=== PATIENT | female | born 1955 | race Caucasian/White ===

== ENCOUNTER 2024-11-17 13:03 | Outpatient (REF) | payer MEDICARE, SELFPAY ==
[2024-11-17 14:39] LABS: Erythrocyte Sedimentation Rate 6 MM/HR (0-20)
--- OUTSIDE RECORDS SUMMARY | 2024-11-17 16:27 | XMS_ITS ---
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 Role Phone Jose Cruz Brown Unavailable [phone] Allergies Allergen (clinical drug ingredient) Drug/Non Drug Allergy documented on EMR Reaction Allergy Type Onset Date Status EPINEPHrine Unknown Drug Allergy Activ e azithromycin Azithromycin Unknown Drug Allergy A ctive REASON FOR VISIT persistent cough for 5 weeks green at times, Took antibiotics from an urgent xgml-zltz-yfj clav-feels it did not work, pcp then gave a cough syrup-on her second bottle, Xray showed No pneumonia-3 weeks ago-had xray at her pcp, SOB when coughing, Feels sinus pressure-, Chocking on phlegm at times-her episodes last about 15 min, Has sleep apnea Medications Medication SIG (Take, Route, Frequency, Duration) Notes Start Date End Date Status Metoprolol Succinate 25 MG 1 capsule Ora lly Once a day Active Ciprofloxacin 500 MG/5ML (10%) 2.5 mL Orally every 12 hrs for 10 days 07/10/2023 Active Citalopram Hydrobromide 10 MG 1 tablet Orally Once a day Active guaiFENesin-Codeine 100-10 MG/5ML 10 mL as needed Orally every 4 hrs for 7 days 07/10/2023 Active Coditussin AC 200-10 MG/5ML 10 mL as nee ded Orally every 4 hrs for 5 days 07/10/2023 Active Vital Signs Temperature 98.5 degrees Fahrenheit 07/10/20 23 Heart Rate 68 /min 07/10/2023 Height 66 in 07/10/2023 Weight 142 lbs 07/10/2023 BMI 22.92 kg/m2 07/10/2023 Oximetry 96 % 07/10/2023 Encounters Encounter Location Date Provider Diagnosis [facility] [address] [place] [address] 07/10/2023 Jose Cruz Brown Cough, unspecified R05.9 and Bronchitis, not specified as acute or chronic J40 Assessments Encounter Date Diagnosis (ICD Code) Assessment Notes Treatment Notes Treatment Clinical Notes Section Notes 07/10/2023 Cough, unspecified (ICD-10 - R05.9) 07/10/2023 Bronchitis, not specified as acute or chronic (ICD-10 - J40) Plan Of Treatment Medication Medication Name Sig Start Date Stop Date Notes Ciprofloxacin 500 MG/5ML (10%) 2.5 mL Or ally every 12 hrs for 10 days 07/10/2023 guaiFENesin-Codeine 100-10 MG/5ML 10 mL as needed Orally every 4 hrs for 7 days 07/10/2023 Coditussin AC 200-10 MG/5ML 10 mL as nee ded Orally every 4 hrs for 5 days 07/10/2023 Pending Test Test Name Order Date X ray : Chest PA and lateral 07/10/2023 Next Appt Details Follow Up: 1 Week, Reason: Progress Notes * AGGIE GIVENS OB:1955 (68 yo F)Acc No.[id number]:07/10/2023 Patient:?DANIEL GIVENS Provider:?Jose Cruz Brown MD :1955???Age:68 Y???Sex:Female D ate:07/10/2023 Address:[address] [place], [place] [id number] Subjective: * Chief Complaints: * ???Persistent cough for 5 we eks green at timesTook antibiotics from an urgent zjhk-ybqw-tsl clav-feels it did not workPcp then gave a cough syrup-on her second bottleXray showed No pneumonia-3 weeks ago-had xray at her pcpSOB when coughingFeels sinus pressure-Chocking on phlegm at times-her episodes last about 15 Claudia sleep apnea * HPI: ???Adolescent Depression Screening:? Hx as above. Notes persistent cough that has been going on for 3 weeks. Had xray in [place] that was negative - she has close follow up scheduled with her regular doctor. Does not cough up blood. ?Generally having trouble sleeping due to the cough. ?Usually not short of breath. * ROS:?cv - no chest pain, palpitaitons, syncope resp - as above - sputum thick, also has sinus congestion. 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 * Medical History:? * Surgical History:?No Surgica l History documented. * Hospitalization/Major Diagno stic Procedure:?No Hospitalization History. * Family History:?Non-Contribu tory.? * Social History:?No Social History documented Non-Contributory. * Medications:?TakingMetoprolo l Succinate 25 MG Capsule ER 24 Hour Sprinkle 1 capsule Orally Once a day Citalopram Hydrobromide 10 MG Tablet 1 tablet Orally Once a day Medication List reviewed and reconciled with the patientTaking Metoprolol Succinate 25 MG Capsule ER 24 Hour Sprinkle 1 capsule Orally Once a day Taking Citalopram Hydrobromide 10 MG Tablet 1 tablet Orally Once a day Medication List reviewed and reconciled with the patient * Allergies:?Azithromycin: All ergyEPINEPHrine: Allergyno[Allergies Verified] Objective: * Vitals:?Temp:98.5F, HR:68/mi n, Wt:142lbs, BMI:22.92Index, Ht: 66 in, Oxygen sat %:96%, Ht-cm: 167.64 cm, Wt-k.41 kg. * Examination: ???General Examination: ?GENERAL APPEARANCE:?alert, pleasant, well nourished, well developed, in no acute distress.?HEAD:?normocephalic, atraumatic.?NECK/THYROID:?neck supple, full range of motion, no carotid bruit, no cervical lymphadenopathy, no thyroid nodules, no thyromegaly.?LUNGS:?clear to auscultation bilaterally, good air movement, no wheezes, rales, rhonchi.?NEUROLOGIC:?nonfocal, alert and oriented, cranial nerves 2-12 grossly intact, motor strength normal upper and lower extremities, no tremor, sensory exam intact.?PSYCH:?alert, oriented, cognitive function intact, mood/affect full range.?slight sinus tenderness or percussion ?lungs- no rhonchi, wheezes, rales. Assessment: * Assessment: 1.?Cough, unspecified - R05. 9 (Primary)?2.?Bronchitis, not specified as acute or chronic - J40? Plan: * Treatment: * Procedure Codes:? * Follow Up:?1 Week * * Sign off status: Completed Addendum: * ? true * Provider:?Jose Cruz Brown MD Date:?06/17 Generated for Jozef guadalupe/Sabina/eTransmitting on:?11/17/2024 04:27 PM EST History and Physical Notes * HPI (History of Present Illness) Category Sub-Category Detail Notes Category Not es z. Adolescent Depression Screening Hx as above. Notes persistent cough that has been going on for 3 weeks. Had xray in [place] that was negative - she has close follow up scheduled with her regular doctor. Does not cough up blood. Generally having trouble sleeping due to the cough. Usually not short of breath. Examination Category Sub-Category Detail Notes Category Not es General Examination GENERAL APPEARANCE: alert, p leasant, well nourished, well developed, in no acute distress slight sinus tenderness or percussion lungs- no rhonchi, wheezes, rales HEAD: normocephalic, atrau matic NECK/THYROID: neck supple, full ra nge of motion, no carotid bruit, no cervical lymphadenopathy, no thyroid nodules, no thyromegaly LUNGS: clear to auscultatio n bilaterally, good air movement, no wheezes, rales, rhonchi NEUROLOGIC: nonfocal, alert and oriented, cranial nerves 2-12 grossly intact, motor strength normal upper and lower extremities, no tremor, sensory exam intact PSYCH: alert, oriented, cog nitive function intact, mood/affect full range
--- OUTSIDE RECORDS SUMMARY | 2024-11-17 16:27 | XMS_ITS | Data Portability ---
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 She has apt with Dr Cohen in a month for consideration of dilation. Her barium swallow results were not available for my review, but she recalls there was no specific notation of cricopharyngeal hypertrophy or evidence of aspiration. Her swallow therapy made dietary recommendations for minced and moist food which she is very capable of managing. 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 Lab None record ed. Referral None record ed. Procedures None record ed. Surgeries None record ed. Imaging None record ed. Medication Orders None record ed. Patient TargetsNo targets recorded. Patient InstructionsNo instructions recorded. Reason for Referral None Reported. Results Created Date Observation Date Name Description Value Unit Range Abnormal Flag Note LastModifiedBy Organization Detail LastModifiedTime 04/29/20 24 04/13/2024 evalu ation of speec h sound produ ction (PROC ) No observ ation record ed. [email or web address] Not Available 2023 15:14:41 Result Notes None recorded. Problems Name Problem SNOMED Code Status Onset Date Resolution Date Notes Provider Name and Address Organization Details Recorded Time Dysphagia 14478123 Active 020 Dysphag ia, unspeci fied; Note: Date Diagnos ed: 0 11:28 AM (R13.10 ) OBED BARKLEY MD [address] [facility],[place] [address], [place], [address] , [facility] 4 11:15:33 Problem Notes None recorded. Procedures Surgical History Date Name Laterality Status Provider Name and Address Organization Details Recorded Time 04/20/20 24 FOL_DP completed OBED BARKLEY MD [address] [facility],[place] [address], [place], [address], [facility] 04/20/2024 11:41:25 06/11/20 22 Esophagoscopy rigid trnso completed OBED BARKLEY MD [address] [facility],[place] [address], [place], [address], [facility] 04/18/2024 11:14:29 Imaging Results Imaging Date Name Status LastModified by Organiz ation Details LastModified Time 04/13/2024 evaluation of speech sound production (PROC) completed [email or web address] Information not available 04/29/2024 15:14:41 Procedure Notes None recorded. Medical Equipment None Reported. Allergies Allergen ID Allergen Name Allergen Category Reaction Reaction Severity Criticality Documentation Date Start Date Code Code System Note Provider Name and Address Organization Details Recorded Time 588650 epinephri ne medicatio n other Not available Not available 01/28/2024 3992 RxNorm React ion: unkno wn, unspe cifie d;; Not Available [facility] 4 01:22:09 [id number] erythromy tawana ethylsucc inate medicatio n other Not available Not available 01/28/2024 4056 RxNorm React ion: unkno wn, unspe cifie d;; Not Available [facility] 4 01:22:10 Medications Name Sig Start Date Stop Date Status Note LastModified by Organization Details LastModified Time metoprolol succinate ER 50 mg tablet,ext ended release 24 hr TAKE 1 AND 1/2 TABLETS DAILY BY MOUTH active Not Available Not Available No t Available citalopram 10 mg tablet TAKE 1 TABLET BY MOUTH DAILY active Not Available Not Available No t Available amoxicilli n 250 mg-potassi um clavulanat e 62.5 mg/5 mL oral suspension TAKE 10 ML BY MOUTH 3 TIMES PER DAY FOR 7 DAYS. DISCARD REMAINING PORTION active Not Available Not Available No t Available ciprofloxa tawana 250 mg tablet TAKE 1 TABLET BY MOUTH EVERY 12 HOURS FOR 7 DAYS active Not Available Not Available No t Available lorazepam 0.5 mg tablet active Medicatio n ID: [id number] Br and Name: lorazepam Send Method: E-Prescri bed Subs Allowed: subs OK Medica tionGener icName: lorazepam Not Available Not Available Not Available codeine 10 mg-guaifen esin 100 mg/5 mL oral liquid TAKE 5 ML BY MOUTH EVERY 6 HOURS active Not Available Not Available No t Available mupirocin 2 % topical ointment APPLY 1-3X DAILY TO WOUND L LOWER LEG UNTIL HEALED active Not Available Not Available No t Available albuterol sulfate HFA 90 mcg/actuat ion aerosol inhaler INHALE 2 PUFFS EVERY 6 HOURS NEEDED FOR SHORTNESS OF BREATH OR WHEEZING active Not Available Not Available No t Available fluticason e propionate 50 mcg/actuat ion nasal spray,susp ension USE 1-2 SPRAYS IN EACH NOSTRIL DAILY EVERY MORNING active Not Available Not Available No t Available doxycyclin e hyclate 100 mg tablet TAKE 1 TABLET BY MOUTH EVERY 12 HOURS FOR 14 DAYS active Not Available Not Available No t Available Aerochambe r Plus Flow-Vu,La rge Mask FOR USE WITH ALBUTEROL active Not Available Not Available No t Available Vitals None Recorded Social History None recorded. Functional Status None recorded. Mental Status None recorded. Family History Nothing Reported. Medical History No medical history recorded. Gynecological HistoryNo gynecological history recorded. Obstetrics History GPAL:G 0 P 0 0 0 0 Past Encounters Encounter ID Performer Location Encounter Start Date Encounter Closed Date Diagnosis/Indication Diagnosis SNOMED-CT Code Diagnosis ICD10 Code Diagnosis Note [id number] OBED BARKLEY MD [facility] [address] [address] 04/20/2024 10:42:30 04/20/2024 12:25:13 Dysphagia 79601102 R13.10 Health Concerns Section Related Observation LastModified by Organization Detzeb LastModified Time None Recorded Concern Status LastModified by Organization Details LastModified Time None Recorded Advance Directives Directive None Recorded Payers Encounter Date Sequence Insurance Name Policy Number Policy Cedillo Covered Member ID Cedillo Member ID Guarantor Name 04/20/2024 1 STEVE-BRICE: MEDICARE PPO BLUE (MEDICARE REPLACEMENT PPO) [id number] Josi Guerrero [id number] Josi Guerrero Notes Date Note Type Note Provider Name and Address Organization Details Recorded Time 04/20/2024 text/html dysphagia06/11/22 [facility] myotomy suspects she is aspirating, can occur when talking while eatingfeels food goes down throat very slowlycan get nasal regurgitation when clears throat 03/26/[address] [facility] - no aspiration04/13/[address] [facility] last week - weak oral and pharyngeal swallow, recommend minced and moist foodcannot project voice over past year OBED BARKLEY MD [address] [place] [address], [phone], [place] [facility] 04/20/2024 12:19:16 OBGyn Episode No OBEpisode recorded.
--- OUTSIDE RECORDS SUMMARY | 2024-11-17 16:27 | XMS_ITS | Clinical Summary ---
Author Organization [facility] Address [address] [place] [phone] Phone Care Team Providers Care Service Desk Manager Name Role Phone Emmett Aadme MD Primary Care Provider [phone] Allergies Active Allergy Reactions Criticality Noted Date Comments Epinephrine Other 01/18/2014 Heart racing Erythromycin Nausea And Vomiting 01/18/2014 Other Reaction(s): Rash/Dermatitis Medications albuterol HFA (PROAIR HFA ; PROVENTIL HFA ; VENTOLIN HFA) 90 mcg/actuation inhaler INHALE 2 PUFFS BY MOUTH EVERY 6 HOURS NEEDED FOR SHORTNESS OF BREATH OR WHEEZING 3 Active citalopram (CeleXA) 10 mg tablet Take 1 Tablet by mouth daily. 2 Active fluticasone propionate (FLONASE) 50 mcg/actuation nasal spray USE 2 SPRAYS INTO EACH NOSTRIL ONCE DAILY 2 Active LORazepam (ATIVAN) 1 mg tabletIndicatio ns:anxiety Take 0.5 tablets (0.5 mg total) by mouth every 6 (six) hours if needed. 2 Active MULTIVITAMIN ORAL Take 1 capsule by mouth daily. 4 Active mupirocin (BACTROBAN) 2 % ointment APPLY 1-3X DAILY TO WOUND L LOWER LEG UNTIL HEALED 3 Active metoprolol succinate (TOPROL-XL) 50 mg 24 hr tablet Take 1 tablet (50 mg total) by mouth 1 (one) time each day. Do not crush or chew. 4 Active metoprolol tartrate (LOPRESSOR) 25 mg tablet Take 1 tablet (25 mg total) by mouth 1 (one) time each day if needed (palpitations) . 10 tablet 4 Active ammonium lactate (AmLactin) 12 % lotion Apply topically if needed for dry skin. 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 Overview (07/23/2024): ENT following PAC (premature atrial contraction) 11/26/2019 Leukopenia 03/04/2017 Overview (07/23/2024): Per patient, mild since 2000 at least Esophageal stricture 07/13/2015 Overview (07/23/2024): Balloon dilatations with Dr Galvin; now seeing Dr Cohen Atrial fibrillation 12/21/2013 Overview (07/23/2024): [facility]; Status post ablation 08/03 SHELDON (obstructive sleep apnea) 12/21/2013 Overview (07/23/2024): Compliant with BiPAP Encounters Date Type Department Care Team Description 08/27/2024 9:15 AM EST Office Visit Orthopedic Surgery - [place] [address] [phone] Farooq Carballo, DPM Xerosis of skin (Primary Dx); Dermatophytosis of nail; Pain in toe of right foot; Pain in toe of left foot; Difficulty walking; Bilateral femoral artery stenosis (CMS/HCC); Dermatofibroma of left lower leg; Metatarsalgia of both feet; Ingrowing nail 08/25/2024 10:40 AM EST Office Visit [facility] - [facility] [address] [facility] 154 [place] [address] Rubi Omer, STEPHANIE Atrial fibrillation, unspecified type (CMS/HCC) (Primary Dx) from Last 3 Months Immunizations Name Administration Dates Next Due Influenza trivalent, 0.5mL ( Fluad) 65yo and older 06/06/2020 Influenza trivalent, 0.5mL, preservative free (Fluarix; FluLaval; Fluzone) ages 6mo and older (Afluria) 3 years and older 05/23/2016,05/09/2015,06/07/2014 Pneumococcal conjugate 13 va lent (Prevnar 13, PCV13) 2mo and older 03/12/2019 Pneumococcal polysaccharide 23 valent (Pneumovax 23) 2yo and older 03/05/2018 Tdap Tetanus diptheria acell ular pertussis (Boostrix; Adacel) 7yo and older 06/10/2020 Zoster Live 02/10/2015 Zoster recombinant (Shingrix ) 19yo and older 05/16/2020,03/02/2020 Surgical History Surgery Date Site/Laterality Comments OTHER SURGICAL HISTORY 2005 PROCEDURE: [place] TOTAL ABDOMINAL HYSTERECT W/WO RMVL TUBE OVARY OTHER SURGICAL HISTORY 2006 PROCEDURE: [place] PROCTOPEXY ABDOMINAL APPROACH OTHER SURGICAL HISTORY 1996 PROCEDURE: HISTORICAL CA BASAL CELL; COMMENT: upper lip UPPER GASTROINTESTINAL ENDOSCOPY 2014 PROCEDURE: UPPER GI ENDOSCOPY/EXAM; COMMENT: esophageal dilatations COLONOSCOPY 2003 PROCEDURE: HISTORICAL COLONOSCOPY; COMMENT: normal; no report COLONOSCOPY 01/13/2014 PROCEDURE: HISTORICAL COLONOSCOPY; COMMENT: mild melanosis; repeat 5 yrs OTHER SURGICAL HISTORY 07/29/2018 PROCEDURE: ---- OTHER ----; COMMENT: ablation for A Fib CATARACT EXTRACTION PROCEDURE: HISTORICAL CATARACT REMOVAL ABLATION A-FIB Medical History Medical History Date Comments Obesity 01/18/2014 DX:Obesity SHELDON (obstructive sleep apnea) 12/21/2013 DX :SHELDON (obstructive sleep apnea); COMMENT: Compliant with BiPAP Atrial fibrillation (CMS/HCC) 12/21/2013 DX :Atrial fibrillation (HCC); COMMENT: [facility] Abnormal echocardiogram 08/11/2014 DX:Abnor mal echocardiogram; COMMENT: 07/30 Basal to mid inferoseptum and basal to mid inferior wall appears slightly hypokinetic, LVEF 55%; similar 05/03 Esophageal stricture 07/13/2015 DX:Esophage al stricture; COMMENT: Balloon dilatations with Dr Galvin Leukopenia 03/04/2017 DX:Leukopenia; C OMMENT: Per patient, mild since 2000 at least History of basal cell carcinoma 03/31/2018 DX:History of basal cell carcinoma; COMMENT: BCC 1998 upper lip Family History Medical History Relation Name Comments Colon cancer Father in his 60's Hypertension Father Stroke Father Diabetes Maternal Grandfather Other: oral CA Mother Coronary artery disease Paternal Grandfather Breast cancer Paternal Grandmother possib le, uncertain Relation Name Status Comments Father Maternal Grandfather Mother Paternal Grandfather Paternal Grandmother Social History Tobacco Use Types Packs/Day Years Used Date Smoking Tobacco: Never Smokeless Tobacco: Never Tobacco Cessation:Counseling Given: Not Answered Alcohol Use Standard Drinks/Week Comments Yes 0 (1 standard drink = 0.6 oz pur e alcohol) Interpersonal Safety Answer Date Record ed Physical Abuse 07/31/2024 Verbal Abuse 07/31/2024 Comments No Sex and Gender Information Value Date Recorded Sex Assigned at Female 07/29/2024 4:07 PM EST Legal Sex Female 5:58 PM EST Gender Identity Female 07/29/2024 4:07 PM EST Sexual Orientation Straight 07/29/2024 4: 07 PM EST Obstetrics History Para Term AB IAB SAB Ectopic Multiple Livin g Live Births 3 Last Filed Vital Signs Vital Sign Reading Time Taken Comments Blood Pressure 140/70 08/25/2024 10:24 AM EST Pulse 59 08/25/2024 10:24 AM EST Temperature 36.7 ??C (98.1 ??F) 07/31/2024 8:09 AM ES T Respiratory Rate 18 07/31/2024 8:29 AM EST Oxygen Saturation 99% 08/25/2024 10:24 AM EST Inhaled Oxygen Concentration - - Weight 63.5 kg (140 lb) 08/27/2024 9:37 AM EST Height 167.6 cm (5' 6 ) 08/25/2024 10:24 AM EST Body Mass Index 22.6 08/25/2024 10:24 AM EST Plan of Treatment Upcoming Encounters Date Type Department Care Team (Late st Contact Info) Description 01/29/2025 2:45 PM EDT Office Visit Pulmonolgy - [address] [place] [phone] James Khan MD 175 [facility] [address] [place] [address] 02/17/2025 9:00 AM EDT Office Visit Orthopedic Surgery - [place] 250 175 [facility] [address] [place] [phone] Farooq Carballo DPM 175 [facility] 250 [place] [address] 08/02/2025 10:45 AM EST Appointment [facility] [address] [place] [phone] Health Maintenance Due Date Last Done Comments Depression Screening 08/25/2022 Medicare Annual Wellness Visit 08/25/2022 Social Influencers of Health Screening 08/25/2022 Cholesterol Screening (Lipid Panel) 03/27/2023 03/27/2018 Falls Risk Assessment 07/31/2025 07/31/2024 Breast Cancer Screening 07/30/2026 07/30/20, 07/29/2023, 07/27/2022, Additional history exists Colorectal Cancer Screening: Colonoscopy 07/31/2029 07/31/2024, 05/12/2019 DTaP,Tdap,and Td Vaccines (2 - Td or Tdap) 06/10/2030 06/10/2020 Osteoporosis Screening (Bone Density Screening) 07/20/2035 07/20/2020 Hepatitis C Screening Completed 01/18/2014 Zoster Vaccines Completed 05/16/2020, 04/18, 03/02/2020, Additional history exists Pneumococcal Vaccine: 50+ Years Completed 04/18/2023, 03/12/2019, 03/05/2018 RSV Immunization Patients 60+ Years Old Completed 09/02/2023 RSV Immunization Patients Under 20 months Aged Out 09/02/2023 No longer eligible based on patient's age to complete this topic Influenza Vaccine Completed 07/06/2024, , 08/05/2023, Additional history exists COVID-19 Vaccine Completed 07/14/2024, , 07/05/2021, Additional history exists HIB Vaccines Aged Out No longer eligi ble based on patient's age to complete this topic HPV Vaccines Aged Out No longer eligi ble based on patient's age to complete this topic Hepatitis A Vaccines Aged Out No long er eligible based on patient's age to complete this topic Hepatitis B Vaccines Aged Out No long er eligible based on patient's age to complete this topic IPV Vaccines Aged Out No longer eligi ble based on patient's age to complete this topic MMR Vaccines Aged Out No longer eligi ble based on patient's age to complete this topic Meningococcal ACWY Vaccine Aged Out N o longer eligible based on patient's age to complete this topic Meningococcal B Vacine Aged Out No lo nger eligible based on patient's age to complete this topic Varicella Vaccines Aged Out No longer eligible based on patient's age to complete this topic Procedures Procedure Name Priority Date/Time Associated Diagnosis Comments ECG 12-LEAD Routine 08/25/2024 11:11 AM EST Atrial fibrillation, unspecified type (CMS/HCC) COLONOSCOPY Routine 07/31/2024 8:08 AM EST Encounter for screening for malignant neoplasm of colon MG MAMMO DIGITAL SCREENING W CHASE BILAT Routine 07/30/2024 11:37 AM EST Encounter for screening mammogram for breast cancer LESLY DEXA AXIAL SKELETON Routine 07/20/2020 2:26 PM EST Asymptomatic menopausal state LIPID PANEL Routine 03/27/2018 HM HEPATITIS C SCREENING Routine 01/18/2014 from Last 3 Months or Most Recently Relevant to Health Maintenance Results * ECG 12 lead (08/25/2024 11:11 AM EST) Ventricular Rate ECG 59 BPM GEMUSE Atrial Rate 59 BPM GEMUSE P-R Interval 162 ms GEMUSE QRS Duration 84 ms GEMUSE Q-T Interval 420 ms GEMUSE QTc 415 ms GEMUSE P Wave [place] 42 degrees GEMUSE R [place] 40 degrees GEMUSE T [place] 39 degrees GEMUSE ECG Interpretation Sinus bradycardia Otherwise normal ECG When compared with ECG of 30-JUL-2018 07:55, No significant change was found Confirmed by Reema VALENCIA JOHN ([id number]) on 08/25/2024 11:42:18 AM GEMUSE 08/25/2024 10:3 6 AM EST 08/25/2024 11:42 AM EST us Rubi Omer BIOMEDICAL SPECIALIST ECG ORDERABLES Edited Resul t - Final GEMUSE * COLONOSCOPY Anesthesia - MAC; [facility] ENDOSCOPY (07/31/2024 8:08 AM EST) Anatomical Region Laterality Modality Endoscopy 07/31/2024 7:53 AM EST Impressions 07/31/2024 8:10 AM EST - Internal hemorrhoids. ? - The entire examined colon is normal. ? - No specimens collected. Recommendation: ?- Repeat colonoscopy in 5 years for screening purposes. Narrative 07/31/2024 8:10 AM EST [facility] GI Patient Name: Josi Umaña Procedure Date: 07/31/2024 7:53 AM Date of : 1955 Age: 69 Gender: Female Note Status: Finalized Attending MD: Trupti Cohen MD, Procedure Date No Time: 07/31/2024 Procedure: ? Colonoscopy Indications: ? Screening in patient at increased risk: Family history ? of 1st-degree relative with colorectal cancer Providers: ? Trupti Cohen MD Referring MD: ?Emmett Adame MD Medicines: ? Propofol per Anesthesia Complications: ? No immediate complications. Estimated Blood Loss: ? Estimated blood loss: none. Procedure: ? Pre-Anesthesia Assessment: ? - ASA Grade Assessment: III - A patient with severe ? systemic disease. ? After I obtained informed consent, the scope was ? passed under direct vision. Throughout the procedure, ? the patient's blood pressure, pulse, and oxygen ? saturations were monitored continuously.The ? Colonoscope was introduced through the anus and ? advanced to the cecum, identified by appendiceal ? orifice and ileocecal valve. The colonoscopy was ? performed without difficulty. The patient tolerated ? the procedure well. The quality of the bowel ? preparation was excellent. Findings: ?The perianal and digital rectal examinations were ? normal. ? Internal hemorrhoids were found during retroflexion. ? The hemorrhoids were Grade I (internal hemorrhoids ? that do not prolapse). ? The entire examined colon appeared normal. Procedure Code(s): ? --- Professional --- ? G0105, Colorectal cancer screening; colonoscopy on ? individual at high risk Diagnosis Code(s): ? --- Professional --- ? Z80.0, Family history of malignant neoplasm of ? digestive organs CPT copyright 2020 [employer]. All rights reserved. The codes documented in this report are preliminary and upon coil winding supervisor review may be revised to meet current compliance requirements. Trupti Cohen MD 07/31/2024 8:09:44 AM This report has been signed electronically.Trupti Cohen MD Number of Addenda: 0 Note Initiated On: 07/31/2024 7:53 AM Scope In: Scope Out: ? Endoscopy Department at [facility] - [address] [place] [address], ? [place] [phone] Procedure Note Trupti Cohen MD - 07/31/2024 [facility] GI Patient Name: Josi Umaña Procedure Date: 07/31/2024 7:53 AM Date of : 1955 Age: 69 Gender: Female Note Status: Finalized Attending MD: Trupti Cohen MD, Procedure Date No Time: 07/31/2024 Procedure: Colonoscopy Indications: Screening in patient at increased risk: Familyhistory of 1st-degree relative with colorectal cancer Providers: Trupti Cohen MD Referring MD: Emmett Adame MD Medicines: Propofol per Anesthesia Complications: No immediate complications. Estimated Blood Loss: Estimated blood loss: none. Procedure: Pre-Anesthesia Assessment: - ASA Grade Assessment: III - A patient with severe systemic disease. After I obtained informed consent, the scope was passed under direct vision. Throughout theprocedure, the patient's blood pressure, pulse, and oxygen saturations were monitored continuously.The Colonoscope was introduced through the anus and advanced to the cecum, identified by appendiceal orifice and ileocecal valve. The colonoscopy was performed without difficulty. The patient tolerated the procedure well. The quality of the bowel preparation was excellent. Findings: The perianal and digital rectal examinations were normal. Internal hemorrhoids were found duringretroflexion. The hemorrhoids were Grade I (internal hemorrhoids that do not prolapse). The entire examined colon appeared normal. Procedure Code(s): --- Professional --- G0105, Colorectal cancer screening; colonoscopy on individual at high risk Diagnosis Code(s): --- Professional --- Z80.0, Family history of malignant neoplasm of digestive organs CPT copyright 2020 [employer]. All rights reserved. The codes documented in this report are preliminary and upon coil winding supervisor reviewmay be revised to meet current compliance requirements. Trupti Cohen MD 07/31/2024 8:09:44 AM This report has been signed electronically.Trupti Cohen MD Number of Addenda: 0 Note Initiated On: 07/31/2024 7:53 AM Scope In: Scope Out: Endoscopy Department at [facility] - [address] [place] [phone] IMPRESSION: - Internal hemorrhoids. - The entire examined colon is normal. - No specimens collected. Recommendation: - Repeat colonoscopy in 5 years for screeningpurposes. us Trupti Cohen MD GI~PROCEDURE ORDERABLES Final Result * MG Mammo Digital Screening w Chase bilat (07/30/2024 11:37 AM EST) Anatomical Region Laterality Modality Breast Bilateral Mammography 07/30/2024 5:16 PM EST Impressions 07/30/2024 5:21 PM EST No mammographic evidence of malignancy. ?? No suspicious interval change. A negative mammogram in the presence of a clinically suspicious palpable abnormality does not preclude the possibility of malignancy or alter the indications for biopsy. ASSESSMENT: ?? BI-RADS 1: NEGATIVE RECOMMENDATION(S): 1: Routine screening mammogram BILATERAL in 1 year. -------- FINAL REPORT -------- Dictated By: Jorge Schuler Dictated Date: 07/30/2024 17:16 ET Assigned Physician: Jorge Schuler Reviewed and Electronically Signed By: Jorge Schuler Signed Date: 07/30/2024 17:21 ET Workstation ID: [id number] Transcribed By: Self Edit Transcribed Date: 07/30/2024 17:16 ET Narrative 07/30/2024 5:21 PM EST EXAM: ??SCREENING MAMMOGRAPHY, BILATERAL HISTORY: ??SCREENING. ??Paternal grandmother with history of breast cancer. COMPARISON: ??07/29/2023, 07/27/2022, 07/25/2021, 07/20/2020 TECHNIQUE: Synthesized CC and MLO projections of each breast. ??Tomosynthesis of each breast in the CC and MLO projections. ADDITIONAL IMAGING: None Computer-aided detection was employed with the iCAD ??profound AI 3-D. TISSUE DENSITY: The breasts are almost entirely fatty. (BI-RADS ??Category A) FINDINGS: RIGHT BREAST: No suspicious mass. No suspicious calcification. No distortion. ?? No additional suspicious right breast findings LEFT BREAST: No suspicious mass. No suspicious calcification. No distortion. ?? No additional suspicious left breast findings Procedure Note Jorge Schuler MD - 07/30/2024 EXAM: SCREENING MAMMOGRAPHY, BILATERAL HISTORY: SCREENING. Paternal grandmother with history of breastcancer. COMPARISON: 07/29/2023, 07/27/2022, 07/25/2021, 07/20/2020 TECHNIQUE: Synthesized CC and MLO projections of each breast.Tomosynthesis of each breast in the CC and MLO projections. ADDITIONAL IMAGING: None Computer-aided detection was employed with the iCAD profound AI 3-D. TISSUE DENSITY: The breasts are almost entirely fatty. (BI-RADS CategoryA) FINDINGS: RIGHT BREAST: No suspicious mass. No suspicious calcification. No distortion. Noadditional suspicious right breast findings LEFT BREAST: No suspicious mass. No suspicious calcification. No distortion. Noadditional suspicious left breast findings IMPRESSION: No mammographic evidence of malignancy. No suspicious interval change. A negative mammogram in the presence of a clinically suspicious palpableabnormality does not preclude the possibility of malignancy or alter theindications for biopsy. ASSESSMENT: BI-RADS 1: NEGATIVE RECOMMENDATION(S): 1: Routine screening mammogram BILATERAL in 1 year. -------- FINAL REPORT -------- Dictated By: Jorge Schuler Dictated Date: 07/30/2024 17:16 ET Assigned Physician: Jorge Schuler Reviewed and Electronically Signed By: Jorge Schuler Signed Date: 07/30/2024 17:21 ET Workstation ID: [id number] Transcribed By: Self Edit Transcribed Date: 07/30/2024 17:16 ET us Emmett Adame MD IMG BI PROCEDURES Final Result * LESLY DEXA AXIAL SKELETON (07/20/2020 2:26 PM EST) Anatomical Region Laterality Modality Mammography 07/20/2020 9:39 AM EST Narrative 07/20/2020 2:26 PM EST [facility] Diagnostic Imaging Department [address] [place], [place] [id number] Patient: ??JOSI UMAÑA ?/Age/Sex: 1955 - F Unit#: ??[id number] ? Location/Status: ??SPDIMAM/REG CLI ? Mnemonic/Ordering Site: ??[facility]DEXAAX/SPMAM Ordering Physician: ??EMMETT ADAME MD Lesly Dexa Axial Skeleton - 07/20/201039 HISTORY: ??The patient is a 65-year-old postmenopausal female with clinical concern for metabolic bone disease. FINDINGS: ??Dual energy x-ray absorptiometry of the lumbar spine and femurs is performed. The mean bone mineral density at L1-L4 is 1.256 gm/cm2 which is 106% of that of young normals and 125% of that of age matched controls. This yields a T-score of 0.6 and a Z-score of 2.1 and there is therefore no evidence of osteoporosis or osteopenia here. The mean bone mineral density of the femurs bilaterally is 1.128 gm/cm2 which is 112% of that of young normals and 131% of that of age matched controls. ??This yields a T-score of 1.0 and a Z-score of 2.1 and there is therefore no evidence of osteoporosis or osteopenia here. IMPRESSION: 1. There is no evidence of osteoporosis or osteopenia. 2. FRAX analysis yields a 10-year probability of major osteoporotic fracture of 6.3% and a 10-year probability of hip fracture of 0.2%. Code 89398 Dictating Physician: ??SILVERIO CRONIN MD Electronically Signed by: ??SILVERIO CRONIN MD Dic Date/Time: ??07/20/20 1425 Sign date/Time: ??07/20/20 1426 Procedure Note Silverio Cronin MD - 09/04/2022 [facility] Diagnostic Imaging Department [address] [place] [id number] Patient: JOSI UMAÑA D.O.B./Age/Sex: 1955 - 65- F Unit#: [id number] Location/Status: SPDIMAM/REG CLI [facility] Ordering Physician: EMMETT ADAME MD [facility] Dexa Axial Skeleton - 07/20/20 - 1040 HISTORY: The patient is a 65-year-old postmenopausal female withclinical concern for metabolic bone disease. FINDINGS: Dual energy x-ray absorptiometry of the lumbar spine and femursis performed. The mean bone mineral density at L1-L4 is 1.256 gm/cm2 which is106% of that of young normals and 125% of that of age matched controls. Thisyields a T-score of 0.6 and a Z-score of 2.1 and there is therefore no evidenceof osteoporosis or osteopenia here. The mean bone mineral density of the femurs bilaterally is 1.128 gm/zw2dqedi is 112% of that of young normals and 131% of that of age matched controls.This yields a T-score of 1.0 and a Z-score of 2.1 and there is therefore noevidence of osteoporosis or osteopenia here. IMPRESSION: 1. There is no evidence of osteoporosis or osteopenia. 2. FRAX analysis yields a 10-year probability of major osteoporoticfracture of 6.3% and a 10-year probability of hip fracture of 0.2%. Code 47384 Dictating Physician: SILVERIO CRONIN MD Electronically Signed by: SILVERIO CRONIN MD Dic Date/Time: 07/20/20 142 Sign date/Time: 07/20/20 142 us Emmett Adame MD IM BI PROCEDURES Final Result * (ABNORMAL) Lipid panel (03/27/2018) LDL/HDL Ratio 4 0 - 4 Triglycerides 138 0 - 150 mg/dL Cholesterol 183 0 - 200 mg/dL HDL 43 >=40 mg/dL LDL Cholesterol 113(A) 0 - 100 mg/dL Blood Venous blood specimen / Unknown Historical Provider LAB BLOOD ORDERABLES Nettie l Result * Hepatitis C Screening (01/18/2014) Hepatitis C Screening Abstracted Historical Provider HEALTH MAINTENANCE Final Result from Last 3 Months or Most Recently Relevant to Health Maintenance Insurance BLUE CROSS - [place] MEDICARE ADVANTAGE Advance Directives Documents on File Type Date Recorded Patient Berry Grower Expl anation Health Care Decision (hx) 06/23/2020 AD MUNROE DIRECTIVE Health Care Decision (hx) 06/23/2020 AD MUNROE DIRECTIVE Health Care Decision (hx) 06/23/2020 AD MUNROE DIRECTIVE Health Care Decision (hx) 06/23/2020 AD MUNROE DIRECTIVE Health Care Decision (hx) 07/29/2018 AD MUNROE DIRECTIVE Health Care Decision (hx) 07/29/2018 AD MUNROE DIRECTIVE Health Care Decision (hx) 07/29/2018 AD MUNROE DIRECTIVE Health Care Decision (hx) 07/29/2018 AD MUNROE DIRECTIVE Health Care Decision (hx) 07/29/2018 AD MUNROE DIRECTIVE Care Teams Service Desk Manager Relationship Specialty Start Date End Date Emmett Adame MD [id number] [place] [address] PCP - General 11/26/13
--- OUTSIDE RECORDS SUMMARY | 2024-11-17 16:27 | XMS_ITS | Patient Health Record ---
Author Organization [facility] Address [address] [place], [place] [address] [address] Allergies Allergen (clinical drug ingredient) Drug/Non Drug Allergy documented on EMR Reaction Allergy Type Onset Date Status EPINEPHrine Unknown Drug Allergy Activ e azithromycin Azithromycin Unknown Drug Allergy A ctive Reason For Referral No Information Medications Medication SIG (Take, Route, Frequency, Duration) [...] 4 hrs for 5 days 07/10/2023 Active Plan Of Treatment Pending Test Test Name Order Date X ray : Chest PA and lateral 07/10/2023 Insurance Providers Payer Name Payer Address Payer Phone Subscriber Number Group Number Insured Name Patient Relationship to Insured Coverage Start Date Coverage End Date [facility] [id number] [place] [phone] [id number] AGGIE GIVENS Self - patient is the insured Medical (General) History Medical History History ICD Code Anxiety
[2024-11-21 22:03] LABS: Acetylcholine Receptor Binding <0.30 nmol/L
[2024-11-22 18:03] LABS: Acetylcholine Recept. Blocking <15 (<15)
[2024-11-23 12:09] LABS: ANA Pattern 2 Nuclear, Speckled; Anti Nuclear Antibody Screen POSITIVE (NEGATIVE)
== END 2024-11-17 13:04 | disposition home or self-care (01) ==
LOC: HO.LAB 13:03
PROVIDERS: PCP Internal Medicine; Visit Provider Psychiatry & Neurology Neurology
DX: R49.0 Dysphonia (principal); R13.10 Dysphagia, unspecified; G62.9 Polyneuropathy, unspecified
CPT/HCPCS: 36415; 82550; 85652; 86038; 86039; 86041; 86042

== ENCOUNTER 2025-01-11 13:00 | Outpatient (REF) | payer MEDICARE, SELFPAY ==
--- OUTSIDE RECORDS SUMMARY | 2025-01-11 15:34 | XMS_ITS | Clinical Summary ---
Author Organization [facility] Address [address] [place] [address] Phone Care Team Providers Care Roll Changer Name Role Phone Emmett Adame MD Primary Care Provider [phone] Allergies Active Allergy Reactions Criticality Noted Date [...] LOWER LEG UNTIL HEALED 3 Active metoprolol tartrate (LOPRESSOR) 25 mg tablet Take 1 tablet (25 mg total) by mouth 1 (one) time each day if needed (palpitations) . 10 tablet 4 Active ammonium lactate (AmLactin) 12 % lotion Apply topically if needed for dry skin. 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 Overview (07/23/2024): ENT following PAC (premature atrial contraction) 11/26/2019 Leukopenia 03/04/2017 Overview (07/23/2024): Per patient, mild since 2000 at least Esophageal stricture 07/13/2015 Overview (07/23/2024): Balloon dilatations with Dr Galvin; now seeing Dr Cohen Atrial fibrillation ([facility] V24, [facility] V28) 0 12/21/2013 Overview (07/23/2024): [facility] Cardiology; Status post ablation 08/03 SHELDON (obstructive sleep apnea) 12/21/2013 Overview (07/23/2024): Compliant with BiPAP Immunizations Name Administration Dates Next Due Influenza [...] Site/Laterality Comments OTHER SURGICAL HISTORY 2005 PROCEDURE: [place] TOTAL ABDOMINAL HYSTERECT W/WO RMVL TUBE OVARY OTHER SURGICAL HISTORY 2006 PROCEDURE: [place] PROCTOPEXY ABDOMINAL APPROACH OTHER SURGICAL HISTORY 1996 [...] apnea); COMMENT: Compliant with BiPAP Atrial fibrillation (CMS/HCC V24, CMS/HCC V28) 12/21/2013 DX:Atrial fibrillation (HCC) ; COMMENT: [facility] Cardiology Abnormal echocardiogram 08/11/2014 DX:Abnor mal echocardiogram; [...] 01/29/2025 2:45 PM EDT Office Visit Pulmonolgy [facility] [address] [facility] [address] [place] [phone] James Khan MD 175 [facility] [address] [place] [address] 02/17/2025 9:00 AM EDT Office Visit Orthopedic Surgery - [place] [address] [facility] [address] [place] [phone] Farooq Carballo DPM [address] [address] 08/02/2025 10:45 AM EST Appointment [facility] [address] [place] [phone] Health Maintenance Due Date Last Done Comments Depression Screening 08/25/2022 Medicare Annual Wellness Visit 08/25/2022 Social Influencers of Health Screening 08/25/2022 Cholesterol Screening (Lipid Panel) 03/27/2023 03/27/2018 COVID-19 Vaccine (6 - Pfizer risk season) 2025 07/14/2024, 02/26/2022, 07/05/2021, Additional history exists Falls Risk Assessment 07/31/2025 07/31/2024 Breast Cancer Screening 07/30/2026 07/30/20 24, 07/29/2023, 07/27/2022, Additional history exists Colorectal Cancer Screening: Colonoscopy 07/31/2029 07/31/2024, 05/12/2019 DTaP,Tdap,and Td Vaccines (2 - Td or Tdap) 06/10/2030 06/10/2020 Osteoporosis Screening (Bone Density Screening) 07/20/2035 07/20/2020 Hepatitis C Screening Completed 01/18/2014 Zoster Vaccines Completed 05/16/2020, 04/18, 03/02/2020, Additional history exists Pneumococcal Vaccine: 50+ Years Completed 04/18/2023, 03/12/2019, 03/05/2018 RSV Immunization Adult Patients Completed 09/02/2023 RSV Immunization Patients Under 20 months Aged Out 09/02/2023 No longer eligible based on patient's age to complete this topic Influenza Vaccine Completed 07/06/2024, , 08/05/2023, Additional history exists HIB Vaccines Aged Out [...] age to complete this topic Meningococcal B Vaccine Aged Out No l onger eligible based on patient's age to complete this topic Varicella Vaccines Aged Out No longer eligible based on patient's age to complete this topic Procedures Procedure Name Priority Date/Time Associated Diagnosis Comments COLONOSCOPY Routine 07/31/2024 8:08 AM EST Encounter [...] Recently Relevant to Health Maintenance Results * COLONOSCOPY Anesthesia - MAC; [facility] ENDOSCOPY (07/31/2024 8:08 AM EST) Anatomical Region Laterality Modality Endoscopy 07/31/2024 7:53 AM EST Impressions 07/31/2024 8:10 AM EST - Internal hemorrhoids. ? - The entire examined colon is normal. ? - No specimens collected. Recommendation: ?- Repeat colonoscopy in 5 years for screening purposes. Narrative 07/31/2024 8:10 AM EST [facility] GI Patient Name: Josi Umaña [...] of ? digestive organs CPT copyright 2020 [employer]. All rights reserved. The codes documented in this report are preliminary and upon sewing trimmer review may be revised to meet current compliance requirements. Trupti Cohen MD 07/31/2024 8:09:44 AM This report has been signed electronically.Trupti Cohen MD Number of Addenda: 0 Note Initiated On: 07/31/2024 7:53 AM Scope In: Scope Out: ? Endoscopy Department at [facility] - [address] [place] [address], ? [place] [address] Procedure Note Trupti Cohen MD - 07/31/2024 [facility] Patient Name: Josi Umaña [...] neoplasm of digestive organs CPT copyright 2020 [employer]. All rights reserved. The codes documented in this report are preliminary and upon sewing trimmer reviewmay be revised to meet current compliance requirements. Trupti Cohen MD 07/31/2024 8:09:44 AM This report has been signed electronically.Trupti Cohen MD Number of Addenda: 0 Note Initiated On: 07/31/2024 7:53 AM Scope In: Scope Out: Endoscopy Department at [facility] - [address] [place] [phone] IMPRESSION: - Internal hemorrhoids. - The entire [...] Signed Date: 07/30/2024 17:21 ET Workstation ID: [id number] Transcribed By: Self Edit Transcribed Date: 07/30/2024 [...] Signed Date: 07/30/2024 17:21 ET Workstation ID: [id number] Transcribed By: Self Edit Transcribed Date: 07/30/2024 17:16 ET us Emmett Adame MD IMG BI PROCEDURES Final Result * LESLY DEXA AXIAL SKELETON (07/20/2020 2:26 PM EST) Anatomical Region Laterality Modality Mammography 07/20/2020 9:39 AM EST Narrative 07/20/2020 2:[address] [facility] Diagnostic Imaging Department [address] [place] [id number] Patient: ??JOSI UMAÑA ?/Age/Sex: 1955 - - F Unit#: ??[id number] ? Location/Status: ??SPDIMAM/REG CLI ? Mnemonic/Ordering Site: ??MAMDEXAAX/SPMAM Ordering Physician: ??EMMETT ADAME MD Lesly Dexa Axial Skeleton - 07/20/20 - 1040 HISTORY: ??The patient is a 65-year-old postmenopausal [...] probability of hip fracture of 0.2%. Code 79580 Dictating Physician: ??SILVERIO CRONIN MD Electronically Signed by: ??SILVERIO CRONIN MD Dic Date/Time: ??07/20/20 1425 Sign date/Time: ??07/20/20 1426 Procedure Note Silverio Cronin MD - 09/04/2022 [facility] Diagnostic Imaging Department [address] [place], [place] [id number] Patient: JOSI UMAÑA /Age/Sex: 1955 65- F Unit#: [id number] Location/Status: SPDIMAM/REG CLI [facility] Ordering Physician: EMMETT ADAME MD [facility] Dexa Axial Skeleton - 07/20/20 - 1040 [...] density of the femurs bilaterally is 1.128 gm/yl4garwl is 112% of that of young normals [...] probability of hip fracture of 0.2%. 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
--- OUTSIDE RECORDS SUMMARY | 2025-01-11 15:34 | XMS_ITS | Patient Health Record ---
Author Organization [employer] Address [address] [place], [place] [address] [address] Allergies Allergen (clinical drug ingredient) Drug/Non Drug [...] Insured Coverage Start Date Coverage End Date [facility] [address] [place] [address] [id number] AGGIE GIVENS Self - patient is the insured Medical (General) History Medical History History ICD Code Anxiety
[2025-01-15 21:24] LABS: Aldolase 7.7 U/L (<=8.1)
[2025-01-19 18:13] LABS: Acetylcholine Recep Modulating 11
== END 2025-01-11 13:01 | disposition home or self-care (01) ==
LOC: HO.LAB 13:00
PROVIDERS: Visit Provider Psychiatry & Neurology Neurology
DX: R49.0 Dysphonia (principal)
CPT/HCPCS: 36415; 82085; 82550; 86043

== ENCOUNTER 2025-05-04 11:11 | Outpatient (AMB) | payer MEDICARE, SELFPAY ==
--- NOTE | 2025-05-04 11:26 | A.OFFVIS_ITS ---
Intake Visit Reasons: 3 Months F/U Allergies epinephrine Allergy (Unknown, Verified 04/26/25 14:38) Unknown erythromycin base Allergy (Unknown, Verified 04/26/25 14:38) Unknown HPI Comments Details: 70 yo RH woman who developed difficulty swallowing around 2014 when she was diagnosed with esophageal stricture. She had multiple dilatation procedures, over the years, her swallowing functing fluctuated. In 2021, she had cricopharangeal myotomy procedure, after which, she said, she was not normal. It affected her abitlity to speak and swallowing even more. To this day, she has not been able to speak loudly or clearly, and able to pronounce certain words or project her voice. She had a swallowing test that revealed weakness of upper pharangeal muscles. She has not noted any improvement after her initial symptoms in 2021. Her desiree body was weak and she has lost a lot of weight. No bladder or bowel issues. Acetylcholine receptor antibody tires were negative, and CPK/Aldolase were not significantly elevated. She is presenting with difficulty swallowing and speech disturbance. She notes that her speech is notably altered by a sensation she describes as gyu to something migrating up her nose, thereby affecting her voice quality. This sensation is sometimes associated with eating, as described during an episode with zucchini and eggplant. Prior evaluations included nasal endoscopy, which revealed no abnormal findings according to her knowledge. She denies having had any brain scans such as an MRI for these issues. This ongoing symptomatology has not shown improvement despite prescribed medications. Additionally, she mentions recent weight gain over the summer with no dietary explanations, possibly contributing indirectly to her condition. The patient also indicates a historical diagnosis of asthma without further detail on management or current symptomatic control. [facility] Medical History (Updated 05/04/25 @ 11:32 by Mariam Patel MD) Peripheral neuropathy Dysphagia Review of Systems Const Details: - Neurological: Reports difficulty swallowing, speech disturbance - Respiratory: Reports asthma - Gastrointestinal: Reports nasopharyngeal regurgitation - General: Reports weight gain Physical Exam Neuro Other: Mental Status: Alert and oriented to person, place, and time. Normal attention. Normal spontaneous speech, fluency, and comprehension. No obvious issues with mood and memory. Affect is appropriate. Cranial Nerves: CN II: Visual villa full to confrontation, visual acuity intact. CN III, IV, : Pupils equal, round, reactive to light and accommodation. Extraocular movements are normal. CN V: Facial sensation is normal. CN VII: Facial movements symmetrical. CN VIII: Hearing intact to bedside conversation is normal. CN IX, X: Palate elevates symmetrically. CN XI: Shoulder shrug and head turn symmetrical. CN XII: Tongue midline without atrophy or fasciculations. Extrapyramidal: Full facial expressions and blinking. No rigidity. Movements are appropriate with no tremor or abnormality. Speech: Nasal Assessment & Plan Assessment & Plan (1) Dysphonia: Comment: NCV/EMG LE (in office) Bilateral lower lumbar radiculopathy and moderate severe right peroneal axonal neuropathy. 12/28/24 Acetylcholine receptor ABs at [facility] [place]: WNL Code(s): R49.0 - Dysphonia Category: Medical (2) Dysphagia: Code(s): R13.10 - Dysphagia, unspecified Category: Medical Qualifiers: Dysphagia type: oropharyngeal phase Qualified Code(s): R13.12 - Dysphagia, oropharyngeal phase Plan Impression: Progressive dysphonia and dysphagia after cricopharangeal myotomy procedure Rec: MRI brain WWO to r/o local pahology Orders: Orders MR head/brain wo/w con Today R13.12 - Dysphagia, oropharyngeal phase, R49.0 - Dysphonia Coding Level of Care Code Est Pt Level 4 (61313) Diagnoses Dysphonia R49.0 Oropharyngeal dysphagia R13.12 Dysphagia type: oropharyngeal phase
--- OUTSIDE RECORDS SUMMARY | 2025-05-04 12:43 | XMS_ITS | Patient Health Record ---
Author Organization [facility] Address [address] [place] [address] Allergies Allergen (clinical drug ingredient) Drug/Non Drug [...] MG/5ML (10%) 2.5 mL Orally every 12 hrs; Duration: 10 days 07/10/2023 Active Citalopram Hydrobromide 10 MG 1 tablet Orally Once a day Active guaiFENesin-Codeine 100-10 MG/5ML 10 mL as needed Orally every 4 hrs; Duration: 7 days 07/10/2023 Active Coditussin AC 200-10 MG/5ML 10 mL as nee ded Orally every 4 hrs; Duration: 5 days 07/10/2023 Active Plan Of Treatment Pending Test Test Name Order Date X ray : Chest PA and lateral 07/10/2023 Insurance Providers Payer Name Payer Address Payer Phone Subscriber Number Group Number Insured Name Patient Relationship to Insured Coverage Start Date Coverage End Date [facility] [address] [place] [address] [id number] AGGIE GIVENS Self - patient is the insured Medical (General) History Medical History History ICD Code Anxiety
--- OUTSIDE RECORDS SUMMARY | 2025-05-04 12:43 | XMS_ITS | Clinical Summary ---
Author Organization [facility] Address [address] [place] [address] Phone Care Team Providers Care Staff Technologist Name Role Phone Emmett Adame MD Primary Care Provider Allergies Active Allergy Reactions Criticality Noted Date [...] 1 (one) time each day if needed (palpitations). 10 tablet 4 Active ammonium lactate (AmLactin) 12 % lotion Apply topically if needed for dry skin. 400 g 4 08/27/20 25 Active metoprolol succinate (TOPROL-XL) 50 mg 24 hr tablet TAKE 1 AND 1/2 TABLETS BY MOUTH DAILY 135 tablet 1 5 Active loratadine (Claritin) 10 mg tablet Take 1 tablet (10 mg total) by mouth. 4 Active omeprazole (PriLOSEC) [address] capsule Take by mouth. 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 Overview (07/23/2024): ENT following PAC (premature atrial contraction) 11/26/2019 Leukopenia 03/04/2017 Overview (07/23/2024): Per patient, mild since 2000 at least Esophageal stricture 07/13/2015 Overview (07/23/2024): Balloon dilatations with Dr Galvin; now seeing Dr Cohen Atrial fibrillation ([facility] V24, [facility] V28) 0 12/21/2013 Overview (07/23/2024): [facility] Cardiology; Status post ablation 08/03 SHELDON (obstructive sleep apnea) 12/21/2013 Overview (07/23/2024): Compliant with BiPAP Encounters Date Type Department Care Team Description 02/17/2025 9:00 AM EDT Office Visit Orthopedic Surgery - [place] [address] [address] Farooq Carballo, DPM Dermatophytosis of nail (Primary Dx); Ingrowing nail; Metatarsalgia of both feet from Last 3 Months Immunizations Name Administration [...] Site/Laterality Comments OTHER SURGICAL HISTORY 2005 PROCEDURE: MT TOTAL ABDOMINAL HYSTERECT W/WO RMVL TUBE OVARY OTHER SURGICAL HISTORY 2006 PROCEDURE: MT PROCTOPEXY ABDOMINAL APPROACH OTHER SURGICAL HISTORY 1996 [...] (CMS/HCC V24, CMS/HCC V28) 12/21/2013 DX:Atrial fibrillation ([facility]) ; COMMENT: [facility] Cardiology Abnormal echocardiogram 08/11/2014 DX:Abnor [...] Sign Reading Time Taken Comments Blood Pressure 124/62 01/29/2025 2:36 PM EDT Pulse 72 01/29/2025 2:36 PM EDT Temperature 35.8 C (96.4 F) 01/29/2025 2:36 PM EDT Respiratory Rate 14 01/29/2025 2:36 PM EDT Oxygen Saturation 97% 01/29/2025 2:36 PM EDT Inhaled Oxygen Concentration - - Weight 65 kg (143 lb 4.8 oz) 02/17/2025 9:15 AM EDT Height 167.6 cm (5' 5.98 ) 02/17/2025 9:15 AM ED T Body Mass Index 23.14 02/17/2025 9:15 AM EDT Plan of Treatment Upcoming Encounters Date Type Department Care Team (Late st Contact Info) Description 08/02/2025 10:45 AM EST [facility]ointment [facility] [address] [address] 08/19/2025 9:00 AM EST Office Visit Orthopedic Surgery [facility] [address] [facility] [address] [place] [phone] Farooq Carballo DPM 175 [facility] [address] [place] [address] 01/31/2026 2:30 PM EDT Office Visit Pulmonolgy - [place] 175 [facility] [address] [place] [phone] James Khan MD [address] [facility] [address] [place] [address] Health Maintenance Due Date Last Done Comments Medicare Annual Wellness Visit 08/25/2022 Social Influencers of Health Screening 08/25/2022 Cholesterol Screening (Lipid Panel) 03/27/2023 03/27/2018 Depression Screening 09/16/2024 COVID-19 Vaccine (6 - Pfizer risk 2023- season) 2025 07/14/2024, 02/26/2022, 07/05/2021, Additional history exists Influenza Vaccine (#1) 2025 , 08/05/2023, 08/05/2023, Additional history exists Falls Risk Assessment 07/31/2025 [...] on patient's age to complete this topic HIB Vaccines Aged Out No longer eligi [...] Asymptomatic menopausal state LIPID PANEL Routine 03/27/2018 HEPATITIS C SCREENING Routine 01/18/2014 from Last 3 Months or Most Recently Relevant to Health Maintenance Results * COLONOSCOPY Anesthesia - MAC; SP ENDOSCOPY (07/31/2024 8:08 AM EST) Anatomical Region Laterality Modality Endoscopy 07/31/2024 7:53 AM EST Impressions 07/31/2024 8:10 AM EST - Internal hemorrhoids. - The entire examined colon is normal. - No specimens collected. Recommendation: - Repeat colonoscopy in 5 years for screening purposes. Narrative 07/31/2024 8:10 AM EST [facility] GI Patient Name: Josi Umaña Procedure Date: 07/31/2024 7:53 AM Date of : 1955 Age: 69 Gender: Female Note Status: Finalized Attending MD: Trupti Cohen MD, Procedure Date No Time: 07/31/2024 Procedure: Colonoscopy Indications: Screening in patient at increased risk: Family history of 1st-degree relative with colorectal cancer Providers: Trupti Cohen MD Referring MD: Emmett Adame MD Medicines: Propofol per Anesthesia Complications: No immediate complications. Estimated Blood Loss: Estimated blood loss: none. Procedure: Pre-Anesthesia Assessment: - ASA Grade Assessment: III - A patient with severe systemic disease. After I obtained informed consent, the scope was passed under direct vision. Throughout the procedure, the patient's blood pressure, pulse, and oxygen saturations were monitored continuously.The Colonoscope was introduced through the anus and advanced to the cecum, identified by appendiceal orifice and ileocecal valve. The colonoscopy was performed without difficulty. The patient tolerated the procedure well. The quality of the bowel preparation was excellent. Findings: The perianal and digital rectal examinations were normal. Internal hemorrhoids were found during retroflexion. The hemorrhoids were Grade I (internal hemorrhoids that do not prolapse). The entire examined colon appeared normal. Procedure Code(s): --- Professional --- G0105, Colorectal cancer screening; colonoscopy on individual at high risk Diagnosis Code(s): --- Professional --- Z80.0, Family history of malignant neoplasm of digestive organs CPT copyright 2020 [employer]. All rights reserved. The codes documented in this report are preliminary and upon registrar nurses' registry review may be revised to meet current compliance requirements. Trupti Cohen MD 07/31/2024 8:09:44 AM This report has been signed electronically.Trupti Cohen MD Number of Addenda: 0 Note Initiated On: 07/31/2024 7:53 AM Scope In: Scope Out: Endoscopy Department at [facility] - [address] [place] [phone] Procedure Note Trupti Cohen MD - 07/31/2024 [facility] Patient Name: Josi Umaña Procedure Date: [...] neoplasm of digestive organs CPT copyright 2020 [employer]. All rights reserved. The codes documented in this report are preliminary and upon registrar nurses' registry reviewmay be revised to meet current compliance requirements. Trupti Cohen MD 07/31/2024 8:09:44 AM This report has been signed electronically.Trupti Cohen MD Number of Addenda: 0 Note Initiated On: 07/31/2024 7:53 AM Scope In: Scope Out: Endoscopy Department at [facility] - [address] [place] [phone] IMPRESSION: - Internal hemorrhoids. - The entire [...] PM EST No mammographic evidence of malignancy. No suspicious interval change. A negative mammogram in the presence of a clinically suspicious palpable abnormality does not preclude the possibility of malignancy or alter the indications for biopsy. ASSESSMENT: BI-RADS 1: NEGATIVE RECOMMENDATION(S): 1: Routine screening mammogram BILATERAL in 1 year. -------- FINAL REPORT -------- Dictated By: Jorge Schuler Dictated Date: 07/30/2024 17:16 ET Assigned Physician: Jorge Schuler Reviewed and Electronically Signed By: Jorge Schulre Signed Date: 07/30/2024 17:21 ET Workstation ID: [id number] Transcribed By: Self Edit Transcribed Date: 07/30/2024 17:16 ET Narrative 07/30/2024 5:21 PM EST EXAM: SCREENING MAMMOGRAPHY, BILATERAL HISTORY: SCREENING. Paternal grandmother with history of breast cancer. COMPARISON: 07/29/2023, 07/27/2022, 07/25/2021, 07/20/2020 TECHNIQUE: Synthesized CC and MLO projections of each breast. Tomosynthesis of each breast in the CC and MLO projections. ADDITIONAL IMAGING: None Computer-aided detection was employed with the [employer] 3-D. TISSUE DENSITY: The breasts are almost entirely fatty. (BI-RADS Category A) FINDINGS: RIGHT BREAST: No suspicious mass. No suspicious calcification. No distortion. No additional suspicious right breast findings LEFT BREAST: No suspicious mass. No suspicious calcification. No distortion. No additional suspicious left breast findings Procedure [...] Signed Date: 07/30/2024 17:21 ET Workstation ID: [id number] Transcribed By: Self Edit Transcribed Date: 07/30/2024 17:16 ET us Emmett Adame MD IMG BI PROCEDURES Final Result * LESLY DEXA AXIAL SKELETON (07/20/2020 2:26 PM EST) Anatomical Region Laterality Modality Mammography 07/20/2020 9:39 AM EST Narrative 07/20/2020 2:26 PM EST [facility] Diagnostic Imaging Department [address] [place] [address] Patient: ANAFRANKYJOSI BECK D.O.B./Age/Sex: 1955 - 65 - F Unit#: [id number] Location/Status: SPDIMAM/REG CLI [facility] Ordering Physician: EMMETT ADAME MD Lesly Dexa Axial Skeleton - 07/20/20 - 1040 HISTORY: The patient is a 65-year-old postmenopausal female with clinical concern for metabolic bone disease. FINDINGS: Dual [...] 131% of that of age matched controls. This yields a T-score of 1.0 and a Z-score of 2.1 and there is therefore no evidence of osteoporosis or osteopenia here. IMPRESSION: 1. There is no evidence of osteoporosis or osteopenia. 2. FRAX analysis yields a 10-year probability of major osteoporotic fracture of 6.3% and a 10-year probability of hip fracture of 0.2%. Code 21801 Dictating Physician: SILVERIO CRONIN MD Electronically Signed by: SILVERIO CRONIN MD Dic Date/Time: 07/20/20 1425 Sign date/Time: 07/20/20 1426 Procedure Note Silverio Cronin MD - 09/04/2022 [facility] Diagnostic Imaging Department [address] [place] [id number] Patient: GIJOSI HERNANDEZ/Age/Sex: 1955 - 65- F Unit#: [id number] Location/Status: [facility]/REG CLI Mnemonic/Ordering Site: [facility] Ordering Physician: EMMETT ADAME MD Lesly Dexa Axial Skeleton - 07/20/201039 HISTORY: The patient is a 65-year-old postmenopausal [...] density of the femurs bilaterally is 1.128 gm/hi4fosxg is 112% of that of young normals [...] probability of hip fracture of 0.2%. 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
--- OUTSIDE RECORDS SUMMARY | 2025-05-04 12:43 | XMS_ITS | Clinical Summary ---
Author Organization [facility] Address [address] [address] Phone Care Team Providers Care Road Equipment Operator Name Role Phone Emmett Fragoso MD Primary Care Provider [phone] Social History Tobacco Use Types Packs/Day Years Used Date Smoking Tobacco: Never Assessed Education Answer Date Recorded Are you interested in more education? Not on marianne e 07/12/2023 Are you concerned about learning? Not on file 07/12/2023 No 07/12/2023 No 07/12/2023 Digital Access Answer Date Recorded No 07/12/2023 No 07/12/2023 Reliable internet access at home? Not on file 07/12/2023 Device with a working camera? Not on file Comments Unknown Sex and Gender Information Value Date Recorded Sex Assigned at Female 07/12/2023 9:47 AM EDT Legal Sex Female 9:45 AM EDT Gender Identity Female 07/12/2023 9:47 AM EDT Sexual Orientation Straight 07/12/2023 9: 47 AM EDT Plan of Treatment Health Maintenance Due Date Last Done Comments LIPID PANEL 1955 DEPRESSION SCREENING 1966 SMOKING Hx and SMOKELESS TOBACCO SCREENING 1967 HEPATITIS C SCREENING 02/06/1972 MAMMOGRAM 1994 COLOGUARD 1999 COLONOSCOPY 1999 COLORECTAL CANCER SCREENING 1999 FIT TEST 1999 FOBT 1999 SIGMOIDOSCOPY 1999 VIRTUAL COLONOSCOPY 1999 OSTEOPOROSIS SCREENING INITIAL (ONE-TIME) 2019 COVID-19 VACCINE ( season) 2024 02/26/2022, 07/05/2021, 12/28/2020 PNEUMOCOCCAL VACCINES (50+ years) (3 of 3 - PCV20 or PCV21) 04/18/2028 04/18/2023, 03/12/2019, 03/05/2018 RSV VACCINE (1 - 1-dose 75+ series) 2029 Adult Td,Tdap Booster 06/10/2030 06/10/2020 ZOSTER VACCINES Completed 05/16/2020, 02/14, 03/02/2020, Additional history exists HEPATITIS A VACCINES Aged Out No long er eligible based on patient's age to complete this topic HIB VACCINES Aged Out No longer eligi ble based on patient's age to complete this topic MENINGOCOCCAL VACCINES (ACWY) Aged Out No longer eligible based on patient's age to complete this topic MENINGOCOCCAL VACCINES (B) Aged Out N o longer eligible based on patient's age to complete this topic Medical Devices Not [place] [address] Garmentory [facility] [place] [address] Garmentory [facility] [employer] [facility] Gar[employer]ory [facility] Care Teams Road Equipment Operator Relationship Specialty Start Date End Date Emmett Fragoso MD [address] [place] [phone] PCP - General Internal Medicine 07/12/23 Additional Source Comments The information contained in this document represents components of the legal health record. It is not the complete legal health record.[facility]
--- OUTSIDE RECORDS SUMMARY | 2025-05-04 12:44 | XMS_ITS | Patient Health Record ---
Author Organization [facility] [place] Address [address] [facility] [place] [address] Care Team Providers Care Delicatessen Department Manager Name Role Phone Nito Fairchild Primary Care Provider Terrance Castelan Unavailable [phone] Allergies Allergen (clinical drug ingredient) Drug/Non Drug Allergy documented on EMR Reaction Allergy Type Onset Date Status Biaxin GI upset Drug Allergy Active erythromycin Erythromycin GI upset Drug Allergy A ctive Z-Pac GI upset Drug Allergy Active Reason For Referral No Information Medications Medication SIG (Take, Route, Fr equency, Duration) Notes Start Date End Date Status Metoprolol Succinate Active Propafenone HCl 150 MG 1 tablet Orally e very 8 hrs; Duration: 30 day(s) Active Aspirin 81 MG 1 tablet Orally Once a day; Duration: 30 day(s) Active Social History Tobacco use other than smoking: Question Answer Notes Are you an other tobacco user? No Problems Problem Type SNOMED Code ICD Code Onset Dates Problem Status W/U Status Risk Notes Problem Ingrowing nail (474526793) Ingrowing Nail (703.0) Active confirmed Problem Onychomycosis (820280251) Onychomycosis (110.1) Active confirmed Problem Pain in limb (38087857) Pain in Limb (729.5) Active confirmed Plan Of Treatment Pending Test Test Name Order Date [id number]-XMERJNX NAIL, 6 OR MORE 06/08/2013 28203-LEERKJP NAIL, 6 OR MORE 12/07/2013 23255-TMHTELK NAIL, 1-5 12/10/2011 16368-RKTXKQK NAIL, 1-5 06/09/2012 93265-KOETKGE NAIL, 1-5 12/08/2012 54415-Nitxlrqv Plate 12/08/2012 56246-Sycxneyo Plate 12/10/2011 33830-Elkcwyfo Plate 06/09/2012 12298-Crdrabdd Plate 12/07/2013 72144-Jtwlifbu Plate 06/08/2013 98519-Tzxijzpu Plate Each Additional 58408-Cvfddxix Plate Each Additional 57700-Xrmynnfg Plate Each Additional 68144-Fkodpuzu Plate Each Additional 05119-Qkvoodap Plate Each Additional Insurance Providers Payer Name Payer Address Payer Phone Subscriber Number Group Number Insured Name Patient Relationship to Insured Coverage Start Date Coverage End Date [facility] [address] [place] [address] [id number] ARSENIO GOMEZ Spouse - patient is the spouse of the insured Medical (General) History Medical History History ICD Code heart condition sleep apnea Surgical History Surgery Date(Month/Year) hysterectomy 2006 rectal surgery 2006
== END 2025-05-04 11:39 | disposition home or self-care (01) ==
LOC: HO.HSM 11:12
PROVIDERS: PCP Internal Medicine; Referring Provider Internal Medicine; Visit Provider Psychiatry & Neurology Neurology
DX: R49.0 Dysphonia (principal); R13.12 Dysphagia, oropharyngeal phase
CPT/HCPCS: 99214

== ENCOUNTER → 2025-05-04 11:11 | Outpatient (BNVA) | payer MEDICARE, SELFPAY | PROVIDERS: PCP Internal Medicine; Referring Provider Internal Medicine; Visit Provider Psychiatry & Neurology Neurology | DX: R49.0 Dysphonia (principal); R13.12 Dysphagia, oropharyngeal phase | CPT/HCPCS: 99212 ==

== ENCOUNTER 2025-05-28 | Outpatient (REF) | payer MEDICARE, SELFPAY ==
--- NOTE | ~2025-05-28 | MR_ITS ---
CLINICAL HISTORY: R49.0 - Dysphonia MR Brain with and without gadolinium Comparison: None provided Findings: No restricted diffusion. No intra-axial mass or hemorrhage. No midline shift. No hydrocephalus. Vascular flow voids are intact. There are no areas of abnormal enhancement. The orbits are normal. The sinuses and mastoid air cells are clear. No focal bone lesion. IMPRESSION: Unremarkable brain MRI. This document has been electronically signed by: Jose Nicole MD on 05/29/2025 09:00:14
--- OUTSIDE RECORDS SUMMARY | 2025-06-28 09:53 | XMS_ITS | Clinical Summary ---
Author Organization [facility] Address [address] [place] [address] Phone Care Team Providers Care Management Trainee Name Role Phone Emmett Adame MD Primary Care Provider [phone] Allergies Active Allergy Reactions Criticality Noted Date [...] skin. 400 g 4 08/27/20 25 Active loratadine (Claritin) 10 mg tablet Take 1 tablet (10 mg total) by mouth. 4 Active omeprazole (PriLOSEC) [address] capsule Take by mouth. 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 Overview (07/23/2024): ENT following PAC (premature atrial contraction) 11/26/2019 Leukopenia 03/04/2017 Overview (07/23/2024): Per patient, mild since 2000 at least Esophageal stricture 07/13/2015 Overview (07/23/2024): Balloon dilatations with Dr Galvin; now seeing Dr Cohen Atrial fibrillation ([facility] V24, [facility] V28) 0 12/21/2013 Overview (07/23/2024): [facility] Cardiology; Status post ablation 08/03 SHELDON (obstructive sleep apnea) 12/21/2013 Overview (07/23/2024): Compliant with BiPAP Immunizations Immunization Administration Dates Next Due Influenza trivalent, 0.5mL [...] Site/Laterality Comments OTHER SURGICAL HISTORY 2005 PROCEDURE: [place] TOTAL ABDOMINAL HYSTERECT W/WO RMVL TUBE OVARY OTHER SURGICAL HISTORY 2006 PROCEDURE: [place] PROCTOPEXY ABDOMINAL APPROACH OTHER SURGICAL HISTORY 1996 [...] V28) 12/21/2013 DX:Atrial fibrillation (HCC) ; COMMENT: [facility] Cardiology Abnormal echocardiogram 08/11/2014 DX:Abnor [...] Safety Answer Date Record ed Physical Abuse Unrecognized value 07/31/2024 Verbal Abuse Unrecognized value 07/31/2024 Comments No Sex and Gender Information [...] Care Team (Late st Contact Info) Description 08/10/2025 10:45 AM EST Appointment Center For [facility]ography at [facility] [address] [place] [phone] 08/19/2025 9:00 AM EST Office Visit Orthopedic Surgery - [place] [address] [phone] Farooq Carballo, DPM [address] [phone] 08/30/2025 9:00 AM EST Office Visit [facility] [address] [facility] [address] [place] [phone] Pranav Olivera MD 300 [facility] [address] [place] [address] 01/31/2026 2:30 PM EDT Office Visit Pulmonology - [place] 175 [facility] 200 [place] [phone] James Khan MD 175 [facility] 200 [place] [address] Health Maintenance Due Date Last Done Comments Medicare Annual Wellness Visit 08/25/2022 Social Influencers of Health Screening 08/25/2022 Cholesterol Screening (Lipid Panel) 03/27/2023 03/27/2018 Depression Screening 09/16/2024 COVID-19 Vaccine (6 - Pfizer risk season) [...] Screening Completed 01/18/2014 Zoster Vaccines Completed 05/16/2020, 02/14, 02/10/2015 Pneumococcal Vaccine: 50+ Years Completed 04/18/2023, 03/12/2019, [...] Encounter for screening mammogram for breast cancer VÍCTOR DEXA AXIAL SKELETON Routine 07/20/2020 2:26 PM EST Asymptomatic menopausal state LIPID PANEL Routine 03/27/2018 HM HEPATITIS C SCREENING Routine 01/18/2014 from Last 3 Months or Most Recently Relevant to Health Maintenance Results * COLONOSCOPY Anesthesia - MAC; [facility] ENDOSCOPY (07/31/2024 8:08 AM EST) Anatomical Region Laterality Modality Endoscopy 07/31/2024 7:53 AM EST Impressions 07/31/2024 8:10 AM EST - Internal hemorrhoids. - The entire examined colon is normal. - No specimens collected. Recommendation: - Repeat colonoscopy in 5 years for screening purposes. Narrative 07/31/2024 8:10 AM EST [facility] GI Patient Name: Josi Umaña Procedure Date: [...] neoplasm of digestive organs CPT copyright 2020 [employer]. All rights reserved. The codes documented in this report are preliminary and upon special assemblies supervisor review may be revised to meet current compliance requirements. Trupti Cohen MD 07/31/2024 8:09:44 AM This report has been signed electronically.Trupti Cohen MD Number of Addenda: 0 Note Initiated On: 07/31/2024 7:53 AM Scope In: Scope Out: Endoscopy Department at [facility] - [address] [place] [phone] Procedure Note Trupti Cohen MD - 07/31/2024 [facility] GI Patient Name: Josi Umaña Procedure Date: [...] neoplasm of digestive organs CPT copyright 2020 [employer]. All rights reserved. The codes documented in this report are preliminary and upon special assemblies supervisor reviewmay be revised to meet current compliance requirements. Trupti Cohen MD 07/31/2024 8:09:44 AM This report has been signed electronically.Trupti Cohen MD Number of Addenda: 0 Note Initiated On: 07/31/2024 7:53 AM Scope In: Scope Out: Endoscopy Department at [facility] - [address] [place] [phone] IMPRESSION: - Internal hemorrhoids. - The entire [...] Signed Date: 07/30/2024 17:21 ET Workstation ID: [id number] Transcribed By: Self Edit Transcribed Date: 07/30/2024 17:16 ET Narrative 07/30/2024 5:21 PM EST EXAM: SCREENING MAMMOGRAPHY, BILATERAL HISTORY: SCREENING. Paternal grandmother with history of breast cancer. COMPARISON: 07/29/2023, 07/27/2022, 07/25/2021, 07/20/2020 TECHNIQUE: Synthesized CC and MLO projections of each breast. Tomosynthesis of each breast in the CC and MLO projections. ADDITIONAL IMAGING: None Computer-aided detection was employed with the [employer] 3-D. TISSUE DENSITY: The breasts are almost [...] Signed Date: 07/30/2024 17:21 ET Workstation ID: [id number] Transcribed By: Self Edit Transcribed Date: 07/30/2024 17:16 ET us Emmett Adame MD IMG BI PROCEDURES Final Result * VÍCTOR DEXA AXIAL SKELETON (07/20/2020 2:26 PM EST) Anatomical Region Laterality Modality Mammography 07/20/2020 9:39 AM EST Narrative 07/20/2020 2:26 PM EST [facility] Diagnostic Imaging Department [address] [place] [address] Patient: LEEROYJOSI Sean ConcepcionB./Age/Sex: 1955 - 65 - F Unit#: [id number] Location/Status: SPDIMAM/REG CLI Mnemonic/Ordering Site: [facility] Ordering Physician: EMMETT ADAME MD [facility] Dexa Axial Skeleton - 07/20/20 - 1040 [...] probability of hip fracture of 0.2%. Code 42278 Dictating Physician: SILVERIO CRONIN MD Electronically Signed by: SILVERIO CRONIN MD Dic Date/Time: 07/20/20 1425 Sign date/Time: 07/20/20 1426 Procedure Note Silverio Cronin MD - 09/04/2022 [facility] Diagnostic Imaging Department [address] [place] [address] Patient: JOSI UMAÑA /Age/Sex: 1955 - 65- F Unit#: [id number] Location/Status: [facility] Mnemonic/Ordering Site: [facility] Ordering Physician: EMMETT ADAME MD [facility] Dexa Axial Skeleton - 07/20/201039 HISTORY: The [...] density of the femurs bilaterally is 1.128 gm/sj8axcfn is 112% of that of young normals [...] probability of hip fracture of 0.2%. Code 88427 Dictating Physician: SILVERIO CRONIN MD Electronically Signed by: SILVERIO CRONIN MD Dic Date/Time: 07/20/20 142 Sign date/Time: 07/20/201425 us Emmett Adame MD IM BI PROCEDURES [...] Documents on File Type Date Recorded Patient Pharmacology Associate Expl anation Health Care Decision (hx) 06/23/2020 [...] (hx) 07/29/2018 AD MUNROE DIRECTIVE Care Teams Management Trainee Relationship Specialty Start Date End Date Emmett Adame MD [address] [place] [address] PCP - General 11/26/13
--- OUTSIDE RECORDS SUMMARY | 2025-06-28 09:53 | XMS_ITS | Patient Health Record ---
Author Organization [facility], d/b/a [facility] Address [address] [place] [address] Allergies Allergen (clinical drug ingredient) Drug/Non Drug [...] Insured Coverage Start Date Coverage End Date [facility] [address] [place] [address] [id number] AGGIE GIVENS Self - patient is the insured Medical (General) History Medical History History ICD Code Anxiety
--- OUTSIDE RECORDS SUMMARY | 2025-06-28 09:53 | XMS_ITS | Encounter Summary ---
Author Organization [facility] Address [address] [address] Phone Care Team Providers Care Cougar Hunter Name Role Phone Emmett Fragoso MD Primary Care Provider [phone] Encounter Details Date Type Department Care Team (Late st Contact Info) Description 07/12/2023 Ancillary Orders [facility] [place] [address] Jose Cruz Brown MD [address] [place] [phone] [email or web address] Cough, unspecified type Social History Tobacco Use [...] type documented in this encounter Care Teams Cougar Hunter Relationship Specialty Start Date End Date Emmett Fragoso MD [address] [place] [address] PCP - General Internal Medicine 07/12/23 documented as of this encounter Additional Source Comments The information contained in this document represents components of the legal health record. It is not the complete legal health record.[facility]
--- OUTSIDE RECORDS SUMMARY | 2025-06-28 09:53 | XMS_ITS | Clinical Summary ---
Author Organization [facility] Address [address] [address] Phone Care Team Providers Care Product Development Worker Name Role Phone Emmett Fragoso MD Primary Care Provider [phone]- [phone] Social History Tobacco Use Types Packs/Day Years [...] COLONOSCOPY 1999 OSTEOPOROSIS SCREENING INITIAL (ONE-TIME) 2019 INFLUENZA VACCINE (#1) 2025 9, 06/23/2018, 08/14/2017, Additional history exists COVID-19 VACCINE ( - 2024- season) 2025 02/26/2022, 07/05/2021, 12/28/2020 PNEUMOCOCCAL VACCINES (50+ years) [...] topic Medical Devices Not on file [place] [id number] [facility] [place] [id number] [facility] [employer] [facility] [employer] [facility] [employer] [facility] [employer] Care Teams Product Development Worker Relationship Specialty Start Date End Date Emmett Fragoso MD [address] [place] [id number] PCP - General Internal Medicine 07/12/23 Additional Source Comments The information contained in this document represents components of the legal health record. It is not the complete legal health record.[facility]
== END 2025-05-28 00:01 | disposition home or self-care (01) ==
LOC: HO.MRI
PROVIDERS: Visit Provider Psychiatry & Neurology Neurology
DX: R49.0 Dysphonia (principal); R13.12 Dysphagia, oropharyngeal phase
CPT/HCPCS: 70553; A9585

== ENCOUNTER → 2025-05-28 09:49 | Outpatient (BNV) | payer MEDICARE, SELFPAY | PROVIDERS: Visit Provider Specialist | DX: R49.0 Dysphonia (principal) | CPT/HCPCS: 70553 ==

== ENCOUNTER 2025-06-08 11:39 | Outpatient (AMB) | payer MEDICARE, SELFPAY ==
--- NOTE | 2025-06-08 11:44 | MHC.OFFVIS ---
Intake Visit Reasons: after MRI Allergies epinephrine Allergy (Unknown, Verified 04/26/25 14:38) Unknown erythromycin base Allergy (Unknown, Verified 04/26/25 14:38) Unknown HPI Comments Details: 70 yo RH woman with dysphagia and dysphonia resulting likely from injury to pharangeal branhes of vagus nerve or the recurrent larangeal nerve(s). She developed difficulty swallowing around 2014 when she was diagnosed with esophageal stricture. She had multiple dilatation procedures, over the years, her swallowing functing fluctuated. In 2021, she had cricopharangeal myotomy procedure, after which, she said, she was not normal. It affected her abitlity to speak and swallowing even more. To this day, she has not been able to speak loudly or clearly, and able to pronounce certain words or project her voice. She had a swallowing test that revealed weakness of upper pharangeal muscles. She has not noted any improvement after her initial symptoms in 2021. She is presenting with swallowing and speech difficulties. Symptoms began following a past procedure, likely impacting the branches of the vagus nerve. The dysphagia presents as hardening, especially at the swallowing initiation point, and certain foods are easier to swallow than others. She also has speech disturbances. A history of cancer prompted further investigation, although no connection to her current symptoms has been identified. Despite these challenges, she has achieved a 10-pound weight gain since the onset of symptoms. REPLACED BY [facility] Medical History (Updated 06/08/25 @ 11:56 by Mariam Patel MD) Peripheral neuropathy Dysphagia Review of Systems Const Details: - Gastrointestinal: Reports dysphagia with certain foods. - Neurological: Reports speech disturbances. - General: Denies any new or worsening symptoms not already discussed. Physical Exam Neuro Other: She is alert and awake with normal spontaneity of speech fluency comprehension and affect. Speech is nasal. She has gained few lb of weight and that was showing now compared to her previous interactions. Balance gait and coordination were normal. Assessment & Plan Assessment & Plan (1) Dysphonia: Comment: MRI brain WO at [facility] in May 2025: Minimal MVD NCV/EMG LE (in office) Bilateral lower lumbar radiculopathy and moderate severe right peroneal axonal neuropathy. 12/28/24 Acetylcholine receptor ABs at [facility] in 2024: WNL Code(s): R49.0 - Dysphonia Category: Medical (2) Dysphagia: Code(s): R13.10 - Dysphagia, unspecified Category: Medical Qualifiers: Dysphagia type: oropharyngeal phase Qualified Code(s): R13.12 - Dysphagia, oropharyngeal phase (3) Disorders of vagus nerve: Code(s): G52.2 - Disorders of vagus nerve Category: Medical Plan During the visit, we discussed that the swallowing and speech difficulties likely stem from past procedural effects on the vagus nerve. As local treatment options are limited, I recommended considering expert consultation at institutions such as [facility] and [facility], particularly due to their proximity to [facility]. The patient expressed an understanding of the challenges posed and acknowledged her progress in weight gain. We emphasized cautious practices in eating and talking to minimize risk. The patient was advised to remain vigilant about her symptoms and consult if significant changes or exacerbations occur. Coding Level of Care Code Est Pt Level 5 (63727) Diagnoses Dysphonia R49.0 Oropharyngeal dysphagia R13.12 Dysphagia type: oropharyngeal phase Disorders of vagus nerve G52.2
--- OUTSIDE RECORDS SUMMARY | 2025-06-08 14:33 | XMS_ITS | Clinical Summary ---
Author Organization [facility] Address [address] [place] [address] Phone Care Team Providers Care Aquacultural Worker Supervisor Name Role Phone Emmett Adame MD Primary Care Provider [phone] Allergies Active Allergy Reactions Criticality Noted Date Comments Epinephrine Other 01/18/2014 Heart racing Erythromycin Nausea And Vomiting 01/18/2014 Other Reaction(s): Rash/Dermatitis Medications albuterol HFA (PROAIR HFA ; PROVENTIL HFA ; VENTOLIN HFA) 90 mcg/actuation inhaler INHALE 2 PUFFS BY MOUTH EVERY 6 HOURS NEEDED FOR SHORTNESS OF BREATH OR WHEEZING 06/25/20 23 Active citalopram (CeleXA) 10 mg tablet Take 1 Tablet by mouth daily. 03/12/20 22 Active fluticasone propionate (FLONASE) 50 mcg/actuation nasal spray USE 2 SPRAYS INTO EACH NOSTRIL ONCE DAILY 02/29/20 22 Active LORazepam (ATIVAN) 1 mg tabletIndicati ons:anxiety Take 0.5 tablets (0.5 mg total) by mouth every 6 (six) hours if needed. 01/13/20 22 Active MULTIVITAMIN ORAL Take 1 capsule by mouth daily. 01/19/20 14 Active mupirocin (BACTROBAN) 2 % ointment APPLY 1-3X DAILY TO WOUND L LOWER LEG UNTIL HEALED 12/22/19 23 Active metoprolol tartrate (LOPRESSOR) 25 mg tablet Take 1 tablet (25 mg total) by mouth 1 (one) time each day if needed (palpitations) . 10 tablet 08/25/20 24 Active ammonium lactate (AmLactin) 12 % lotion Apply topically if needed for dry skin. 400 g 08/27/20 24 025 Active loratadine (Claritin) 10 mg tablet Take 1 tablet (10 mg total) by mouth. 08/25/20 24 Active omeprazole (PriLOSEC) [address] capsule Take by mouth. 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 Overview (07/23/2024): ENT following PAC (premature atrial contraction) 11/26/2019 Leukopenia 03/04/2017 Overview (07/23/2024): Per patient, mild since 2000 at least Esophageal stricture 07/13/2015 Overview (07/23/2024): Balloon dilatations with Dr Galvin; now seeing Dr Cohen Atrial fibrillation ([facility] V24, [facility] V28) 0 12/21/2013 Overview (07/23/2024): [facility] Cardiology; Status post ablation 08/03 [...] Site/Laterality Comments OTHER SURGICAL HISTORY 2005 PROCEDURE: [place] TOTAL ABDOMINAL HYSTERECT W/WO RMVL TUBE OVARY OTHER SURGICAL HISTORY 2006 PROCEDURE: [place] PROCTOPEXY ABDOMINAL APPROACH OTHER SURGICAL HISTORY 1996 [...] V28) 12/21/2013 DX:Atrial fibrillation (HCC) ; COMMENT: [facility] Cardiology Abnormal echocardiogram 08/11/2014 DX:Abnor [...] disease Paternal Grandfather Breast cancer Paternal Grandmother noelle le, uncertain Relation Name Status Comments Father [...] AM EST Appointment [facility] [address] [place] [phone] 08/19/2025 9:00 AM EST Office Visit Orthopedic Surgery - [place] [address] [phone] Farooq Carballo, DPM [address] [phone] 08/30/2025 9:00 AM EST Office Visit [facility] - [facility] [address] [facility] [address] [place] [phone] Pranav Olivera MD [address] [place] [address] [address] [place] [phone] 01/31/2026 2:30 PM EDT Office Visit Pulmonology - [place] 175 [facility] [address] [place] [phone] James Khan MD 175 [facility] 200 [place] [address] Health Maintenance Due Date Last Done Comments [...] for screening purposes. Narrative 07/31/2024 8:[address] [facility] GI Patient Name: Josi Umaña [...] neoplasm of digestive organs CPT copyright 2020 [employer]. All rights reserved. The codes documented in this report are preliminary and upon webbing supervisor review may be revised to meet current compliance requirements. Trupti Cohen MD 07/31/2024 8:09:44 AM This report has been signed electronically.Trupti Cohen MD Number of Addenda: 0 Note Initiated On: 07/31/2024 7:53 AM Scope In: Scope Out: Endoscopy Department at [facility] - [address] [place] [phone] Procedure Note Trupti Cohen MD - 07/31/2024 [facility] GI Patient Name: Josi Umaña [...] neoplasm of digestive organs CPT copyright 2020 [employer]. All rights reserved. The codes documented in this report are preliminary and upon webbing supervisor reviewmay be revised to meet current compliance requirements. Trupti Cohen MD 07/31/2024 8:09:44 AM This report has been signed electronically.Trupti Cohen MD Number of Addenda: 0 Note Initiated On: 07/31/2024 7:53 AM Scope In: Scope Out: Endoscopy Department at [facility] - [address] [place] [phone] IMPRESSION: - Internal hemorrhoids. - The entire [...] Signed Date: 07/30/2024 17:21 ET Workstation ID: [id number] Transcribed By: Self Edit Transcribed Date: 07/30/2024 17:16 ET Narrative 07/30/2024 5:21 PM EST EXAM: SCREENING MAMMOGRAPHY, BILATERAL HISTORY: SCREENING. Paternal grandmother with history of breast cancer. COMPARISON: 07/29/2023, 07/27/2022, 07/25/2021, 07/20/2020 TECHNIQUE: Synthesized CC and MLO projections of each breast. Tomosynthesis of each breast in the CC and MLO projections. ADDITIONAL IMAGING: None Computer-aided detection was employed with the [employer] AI 3-D. TISSUE DENSITY: The breasts are [...] Signed Date: 07/30/2024 17:21 ET Workstation ID: [id number] Transcribed By: Self Edit Transcribed Date: 07/30/2024 17:16 ET us Emmett Adame MD IMG BI PROCEDURES Final Result * LESLY DEXA AXIAL SKELETON (07/20/2020 2:26 PM EST) Anatomical Region Laterality Modality Mammography 07/20/2020 9:3 9 AM EST Narrative 07/20/2020 2:26 PM EST [facility] Diagnostic Imaging Department [address] [place] [id number] Patient: JOSI UMAÑA D.O.B./Age/Sex: 1955 - F Unit#: [id number] Location/Status: SPDIMAM/REG CLI [facility] Ordering Physician: EMMETT ADAME MD Lesly Dexa [...] probability of hip fracture of 0.2%. Code 34769 Dictating Physician: SILVERIO CRONIN MD Electronically Signed by: SILVERIO CRONIN MD Dic Date/Time: 07/20/20 1425 Sign date/Time: 07/20/20 142 Procedure Note Silverio Cronin MD - 09/04/2022 [facility] Diagnostic Imaging Department [address] [place] [address] Patient: JOSI UMAÑA /Age/Sex: 1955 - 65- F Unit#: [id number] Location/Status: SPDIMAM/REG CLI Mnemonic/Ordering Site: [facility] Ordering Physician: EMMETT ADAME MD Lesly Dexa [...] density of the femurs bilaterally is 1.128 gm/ue8xvzqn is 112% of that of young normals [...] probability of hip fracture of 0.2%. Code 26125 Dictating Physician: SILVERIO CRONIN MD Electronically Signed [...] Documents on File Type Date Recorded Patient Devulcanizer Charger Expl anation Health Care Decision (hx) 06/23/2020 [...] (hx) 07/29/2018 AD MUNROE DIRECTIVE Care Teams Aquacultural Worker Supervisor Relationship Specialty Start Date End Date Emmett Adame MD [address] [place] [address] PCP - General 11/26/13
--- OUTSIDE RECORDS SUMMARY | 2025-06-08 14:33 | XMS_ITS | Clinical Summary ---
Author Organization [facility] Address [address] [address] Phone Care Team Providers Care Cath Lab Radiology Technician Name Role Phone Emmett Fragoso MD Primary Care Provider [phone] Social History Tobacco Use Types Packs/Day Years [...] Medical Devices [place] [address] [facility] [place] [id number] [employer] [facility] [employer] [facility] [employer] [facility] [employer] [facility] Care Teams Cath Lab Radiology Technician Relationship Specialty Start Date End Date Emmett Fragoso MD [address] [place] [phone] PCP - General Internal Medicine 07/12/23 Additional Source Comments The information contained in this document represents components of the legal health record. It is not the complete legal health record.[facility]
--- OUTSIDE RECORDS SUMMARY | 2025-06-08 14:33 | XMS_ITS | Encounter Summary ---
Author Organization [facility] Address [address] [address] Phone Care Team Providers Care Supervisor Public Health Nursing Name Role Phone Emmett Fragoso MD Primary Care Provider [phone] Encounter Details Date Type Department Care Team (Late st Contact Info) Description 07/12/2023 Ancillary [place] [address] Jose Cruz Brown MD [address] [place] [phone] [email or web address] Cough, unspecified type Social History Tobacco Use Types Packs/Day Years [...] Orientation Straight 07/12/2023 9: 47 AM EDT documented as of this encounter Plan of Treatment Not on file documented as of this encounter Results * XR CHEST PA AND LATERAL 2 VIEWS (07/12/2023 10:18 AM EDT) Anatomical Region Laterality Modality Chest Radiographic Thelma ging 07/12/2023 10:1 9 AM EDT Impressions 07/12/2023 10:20 AM EDT Clear lungs with no evidence for pneumonia or pulmonary edema. Narrative 07/12/2023 10:20 AM EDT XR CHEST PA AND LATERAL 2 VIEWS COMPARISON: None available FINDINGS: Devices/Tubes/Lines: None. Lungs: The lungs are clear. No focal consolidation or pulmonary edema. Pleura: No pleural effusion or pneumothorax. Heart/Mediastinum: The heart and mediastinum are normal. Bones/Soft Tissues: No significant skeletal abnormality. Procedure Note Ade South MD - 07/12/2023 XR CHEST PA AND LATERAL 2 VIEWS COMPARISON: None available FINDINGS: Devices/Tubes/Lines: None. Lungs: The lungs are clear. No focal consolidation or pulmonary edema. Pleura: No pleural effusion or pneumothorax. Heart/Mediastinum: The heart and mediastinum are normal. Bones/Soft Tissues: No significant skeletal abnormality. IMPRESSION: Clear lungs with no evidence for pneumonia or pulmonary edema. Jose Cruz Brown MD IMG XR CHEST Final Resul t documented in this encounter Visit Diagnoses Diagnosis Cough, unspecified type Cough, unspecified type documented in this encounter Care Teams Supervisor Public Health Nursing Relationship Specialty Start Date End Date Emmett Fragoso MD [address] [place] [address] PCP - General Internal Medicine 07/12/23 documented as of this encounter Additional Source Comments The information contained in this document represents components of the legal health record. It is not the complete legal health record.[facility]
--- OUTSIDE RECORDS SUMMARY | 2025-06-08 14:33 | XMS_ITS | Patient Health Record ---
Author Organization [facility] [facility] d[facility]/a [facility] Address [address] [place] [address] Allergies Allergen (clinical drug ingredient) Drug/Non Drug [...] Insured Coverage Start Date Coverage End Date [facility] [address] [place] [address] [id number] AGGIE GIVENS Self - patient is the insured Medical (General) History Medical History History ICD Code Anxiety
--- OUTSIDE RECORDS SUMMARY | 2025-06-08 14:34 | XMS_ITS | Patient Health Record ---
[facility] [place] Address [address] [facility] [place] [address] Care Team Providers Care Drone Operator Name Role Phone Nito Fairchild Primary Care Provider Terrance Castelan Unavailable [phone] Allergies Allergen (clinical drug ingredient) Drug/Non Drug [...] W/U Status Risk Notes Problem Ingrowing nail (711344846) Ingrowing Nail (703.0) Active confirmed Problem Onychomycosis (809356398) Onychomycosis (110.1) Active confirmed Problem Pain in limb (69236938) Pain in Limb (729.5) Active confirmed Plan Of Treatment Pending Test Test Name Order Date [id number] NAIL, 6 OR MORE 06/08/2013 86191-WIUUNJN NAIL, 6 OR MORE 12/07/2013 37400-XPRHKYV NAIL, 1-5 12/10/2011 23677-PHWVXWY NAIL, 1-5 06/09/2012 56514-MFQHJZO NAIL, 1-5 12/08/2012 47794-Umifncom Plate 12/08/2012 13492-Mlritejz Plate 12/10/2011 38789-Mftyluza Plate 06/09/2012 45309-Xuzqnwca Plate 12/07/2013 80333-Kryynriv Plate 06/08/2013 26097-Zvfrsbyw Plate Each Additional 28363-Teavgoqa Plate Each Additional 26894-Zffocywa Plate Each Additional 23204-Rakktybc Plate Each Additional 17483-Dynupvpz Plate Each Additional Insurance Providers Payer Name Payer Address Payer Phone Subscriber Number Group Number Insured Name Patient Relationship to Insured Coverage Start Date Coverage End Date [facility] [address] [place] [address] [id number]RSEN[address] GOMEZ Spouse - patient is the spouse of the insured Medical (General) History Medical History History ICD Code heart condition sleep apnea Surgical History Surgery Date(Month/Year) hysterectomy 2006 rectal surgery 2006
== END 2025-06-08 12:00 | disposition home or self-care (01) ==
LOC: HO.HSM 11:40
PROVIDERS: PCP Internal Medicine; Visit Provider Psychiatry & Neurology Neurology
DX: R49.0 Dysphonia (principal); R13.12 Dysphagia, oropharyngeal phase; G52.2 Disorders of vagus nerve
CPT/HCPCS: 99214

== ENCOUNTER → 2025-06-08 11:39 | Outpatient (BNVA) | payer MEDICARE, SELFPAY | PROVIDERS: PCP Internal Medicine; Visit Provider Psychiatry & Neurology Neurology | DX: R49.0 Dysphonia (principal); G52.2 Disorders of vagus nerve; R13.12 Dysphagia, oropharyngeal phase | CPT/HCPCS: 99212 ==